=== PATIENT | male | born 1995 | race African-American/Black ===

== ENCOUNTER 2020-11-23 09:36 | Emergency (ER) | payer MEDICAID ==
[~2020-11-23] VITALS: Ht 177.8 cm; Wt 74.8 kg
--- NOTE | 2020-11-23 09:49 | Emergency Room Report ---
History of Present Illness General Chief Complaint: Abdominal Pain Source: Patient Present Illness HPI Patient is a 25-year-old male who presents for increased generalized body aches and possible seizure activity. Reports having prior history of seizure disorder. States he is taking Vimpat. States he took his medication this morning. Reportedly had seizure last night. Reports of increased generalized body aches as well as nausea. He induced vomiting this morning. He was brought in by paramedics. Denies any recent fever. 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 COVID-19 Screening: Negative COVID-19 COVID-19 Testing Source: nasal Patient History Reviewed Nursing Documentation: PMH: Agreed; PSxH: Agreed Nursing Documentation-PMH Past Medical History: No History, Except For Hx Seizures: Yes Review of Systems All Other Systems: negative except mentioned in HPI Physical Exam Vital Signs Date Time Temp Pulse Resp B/P (MAP) Pulse Ox O2 Delivery O2 Flow Rate FiO2 11/23/20 09:39 99.1 80 17 139/87 (104) 95 Room Air Sp02 EP Interpretation: reviewed, normal General Appearance: normal inspection, well appearing, no apparent distress, alert, GCS 15 Head: atraumatic ENT: normal ENT inspection, hearing grossly normal, normal voice, other - tongue abrasion Neck: normal inspection, full range of motion, supple, no bony tend Respiratory: normal inspection, lungs clear, normal breath sounds, no respiratory distress, no retraction, no wheezing Cardiovascular #1: regular rate, rhythm, no edema Gastrointestinal: normal inspection, normal bowel sounds, non tender, soft, no guarding, no hernia Genitourinary: no CVA tenderness Musculoskeletal: normal inspection, back normal, normal range of motion Neurologic: alert, motor strength/tone normal, 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 Differential diagnosis include was not limited to medication withdrawal, breakthrough seizure, rhabdomyolysis among others. Because of complexity of patient's case laboratory tests and imaging studies were ordered. Patient had not witnessed seizure and does appear to have some recent oral trauma from possible seizure activity. Patient was started on IV fluids and given Ativan due to reported recent seizure. Had prior history of a seizure disorder but had unknown etiology. Does not appear to be having any alcohol withdrawal at this time. Patient's laboratory testing showed a minimally elevated CK. Patient was given IV hydration.He was able to tolerate oral fluids as well as food. Does not appear to have any evidence of acute abdomen. Patient was advised return precautions.This medical record is generated with [employer] tile classifier software. There may be some tile classifier discrepancies related to use of this software Labs Test 11/23/20 09:45 11/23/20 10:10 White Blood Count 8.4 K/UL (4.8-10.8) Red Blood Count 5.05 M/UL (4.70-6.10) Hemoglobin 14.6 G/DL (14.2-18.0) Hematocrit 44.9 % (42.0-52.0) Mean Corpuscular Volume 89 FL (80-99) Mean Corpuscular Hemoglobin 28.9 PG (27.0-31.0) Mean Corpuscular Hemoglobin Concent 32.5 G/DL (32.0-36.0) Red Cell Distribution Width 12.0 % (11.6-14.8) Platelet Count 307 K/UL (150-450) Mean Platelet Volume 6.3 FL (6.5-10.1) Neutrophils (%) (Auto) 60.5 % (45.0-75.0) Lymphocytes (%) (Auto) 31.8 % (20.0-45.0) Monocytes (%) (Auto) 6.0 % (1.0-10.0) Eosinophils (%) (Auto) 0.8 % (0.0-3.0) Basophils (%) (Auto) 0.9 % (0.0-2.0) Sodium Level 141 MMOL/L (136-145) Potassium Level 4.9 MMOL/L (3.5-5.1) Chloride Level 106 MMOL/L (98-107) Carbon Dioxide Level 27 MMOL/L (21-32) Anion Gap 8 mmol/L (5-15) Blood Urea Nitrogen 20 mg/dL (7-18) Creatinine 1.4 MG/DL (0.55-1.30) Estimat Glomerular Filtration Rate > 60 mL/min (>60) Glucose Level 111 MG/DL (74-106) Calcium Level 9.3 MG/DL (8.5-10.1) Total Bilirubin 0.4 MG/DL (0.2-1.0) Aspartate Amino Transf (AST/SGOT) 36 U/L (15-37) Alanine Aminotransferase (ALT/SGPT) 30 U/L (12-78) Alkaline Phosphatase 72 U/L (46-116) Total Creatine Kinase 527 U/L (26-308) Total Protein 8.1 G/DL (6.4-8.2) Albumin 3.9 G/DL (3.4-5.0) Globulin 4.2 g/dL Albumin/Globulin Ratio 0.9 (1.0-2.7) Serum Alcohol < 3 mg/dL Urine Color Pale yellow Urine Appearance Slightly cloudy Urine pH 5 (4.5-8.0) Urine Specific [place] 1.020 (1.005-1.035) Urine Protein 3+ (NEGATIVE) Urine Glucose (UA) Negative (NEGATIVE) Urine Ketones 1+ (NEGATIVE) Urine Blood 2+ (NEGATIVE) Urine Nitrite Negative (NEGATIVE) Urine Bilirubin Negative (NEGATIVE) Urine Urobilinogen Normal MG/DL (0.0-1.0) Urine Leukocyte Esterase Negative (NEGATIVE) Urine RBC 5-10 /HPF (0 - 0) Urine WBC 0 /HPF (0 - 0) Urine Squamous Epithelial Cells Occasional /LPF Urine Amorphous Sediment Moderate /LPF (NONE) Urine Bacteria Few /HPF (NONE) Urine Mucus Many /LPF (NONE/OCC) Urine Opiates Screen Negative (NEGATIVE) Urine Barbiturates Screen Negative (NEGATIVE) Phencyclidine (PCP) Screen Negative (NEGATIVE) Urine Amphetamines Screen Negative (NEGATIVE) Urine Benzodiazepines Screen Negative (NEGATIVE) Urine Cocaine Screen Negative (NEGATIVE) Urine Marijuana (THC) Screen Positive (NEGATIVE) Last Vital Signs Date Time Temp Pulse Resp B/P (MAP) Pulse Ox O2 Delivery O2 Flow Rate FiO2 11/23/20 09:39 99.1 80 17 139/87 (104) 95 Room Air Status: improved Disposition: HOME, SELF-CARE Condition: Stable Scripts Ondansetron Odt* (ZOFRAN ODT*) 4 Mg Tab.rapdis 4 MG BC EVERY 6 HOURS PRN for Nausea & Vomiting, #10 TAB 0 Refills Prov: Constantine Jara MD 11/23/20 Constantine Jara MD Nov 23, 2020 09:49
[2020-11-23 09:50] VITALS: BP 141/98
[2020-11-23] MEDS ORDERED: [UNRECOGNIZED DRUG - OTHER] MC (10:00)
[2020-11-23] MEDS ORDERED: LORazepam Inj 2mg/ml 1ml IV ONE (10:00)
[2020-11-23] MEDS ORDERED: D5 1/2NS w/KCl 20mEq 1,000 ML IV SCH (10:00)
[2020-11-23 10:09] LABS: ANION GAP 8 mmol/L (5-15); BLOOD UREA NITROGEN 20 mg/dL (7-18); CALCIUM 9.3 MG/DL (8.5-10.1); CARBON DIOXIDE 27 MMOL/L (21-32); CHLORIDE 106 MMOL/L (98-107); CREATININE 1.4 MG/DL (0.55-1.30); POTASSIUM 4.9 MMOL/L (3.5-5.1); SODIUM 141 MMOL/L (136-145)
[2020-11-23 10:14] LABS: ALANINE AMINOTRANSFERASE 30 U/L (12-78); ALBUMIN 3.9 G/DL (3.4-5.0); ALBUMIN/GLOBULIN RATIO 0.9 (1.0-2.7); ALKALINE PHOSPHATASE 72 U/L (46-116); ASPARTATE AMINO TRANSFERASE 36 U/L (15-37); BILIRUBIN,TOTAL 0.4 MG/DL (0.2-1.0); CREATINE KINASE 527 U/L (26-308)
[2020-11-23 10:15] LABS: BASOPHILS % (AUTO) 0.9 % (0.0-2.0); EOSINOPHILS % (AUTO) 0.8 % (0.0-3.0); HEMATOCRIT 44.9 % (42.0-52.0); HEMOGLOBIN 14.6 G/DL (14.2-18.0); LYMPHOCYTES % (AUTO) 31.8 % (20.0-45.0); MEAN CORPUSCULAR VOLUME 89 FL (80-99); NEUTROPHILS % (AUTO) 60.5 % (45.0-75.0); PLATELET COUNT 307 K/UL (150-450); RED BLOOD COUNT 5.05 M/UL (4.70-6.10); WHITE BLOOD COUNT 8.4 K/UL (4.8-10.8)
--- NOTE | 2020-11-23 10:24 | NUR ---
ED Nurse Note: pt arrived by ambulance for seizure last night. pt states his medication was changed recently. pt denies vision changed, denies hitting head, denies seizure activity this morning. pt states he took his medication this morning, denies alcohol/drug use. pt A&Ox4, ambulatory, vital signs stable. pt placed on continuous cardiac/O2 monitor on arrival. seizure precautions in place (seizure pads, bed rails up, bed in locked low position, oxygen and suction set up at bedside). IV placed, blood and urine sent. pt medicated per MD orders. pt given water per MD clearance for PO liquids, pt given blankets. pt demanding on arrival, claiming RN took his ID, that the RN is "malicious" for not giving pt water before being cleared for PO liquids from MD, demanding that he needs more blankets immediately. RN gave pt another blanket but was in the middle of medicating pt so unable to leave immedately to get an additional one. pt states that he is being "maltreated and has a big following", pulls out phone and begins filming RN and ER staff. pt educated that we are trying to help him by giving him medication and completing labwork. MD and charge nurse notified regarding pt behavior and attitude. pt refusing to wear mask while staff are in room. pt currently on continuous cardiac/O2 monitor. call light in reach.
[2020-11-23 10:25] LABS: APPEARANCE,URINE SLIGHTLY CLOUDY; BILIRUBIN, URINE NEGATIVE (NEGATIVE); COLOR,URINE PALE YELLOW; GLUCOSE, URINE (UA) NEGATIVE (NEGATIVE); KETONES,URINE 1+ (NEGATIVE); LEUKOCYTE ESTERASE ,URINE NEGATIVE (NEGATIVE); NITRITE,URINE NEGATIVE (NEGATIVE); PH,URINE 5 (4.5-8.0); PROTEIN,URINE 3+ (NEGATIVE); UROBILINOGEN,URINE NORMAL MG/DL (0.0-1.0)
--- NOTE | 2020-11-23 11:00 | NUR ---
RN went in to pt room to change pt IV to NS fluid bolus per MD order. pt coughing and refusing to keep mask on when RN in room. RN asked pt to sit up to untangle IV tubing that was under pt. pt refusing to move, refusing to look at RN. pt refusing to give arm to change IV medication. pt educated regarding need to change IV fluids.
[2020-11-23 11:10] VITALS: BP 134/82
[2020-11-23 11:31] VITALS: BP 134/74
--- NOTE | 2020-11-23 11:31 | NUR ---
pt resting in bed. on continuous cardiac/O2 monitor. vital signs stable. no seizure activty noted. will continue to monitor.
[2020-11-23] MEDS ORDERED: ONDANSETRON ODT4 MG BC (11:37)
[2020-11-23 12:06] VITALS: BP 142/83
[2020-11-23 12:20] VITALS: BP 140/81
--- NOTE | 2020-11-23 12:20 | NUR ---
ER DISCHARGE NOTE: Patient is cleared to be discharged per ERMD, pt is aox4, on room air, with stable vital signs. pt was given dc and prescription instructions, pt was able to verbalize understanding, pt id band and iv site removed without complications. pt is able to ambulate with steady gait. pt took all belongings.
== END 2020-11-23 12:25 | disposition other institution (70) ==
LOC: EDBD 09:36 → EMR 10:16
DX: G40.909 Epilepsy, unspecified, not intractable, without status epilepticus (principal); E86.0 Dehydration; F12.90 Cannabis use, unspecified, uncomplicated; Z79.899 Other long term (current) drug therapy
CPT/HCPCS: 36415; 80053; 80307; 81001; 82550; 85025; 96361; 96365; 96366; 96375; G0480; S0028; Z7502; 99284